=== PATIENT | female | born 1970 | race Caucasian/White ===

== ENCOUNTER → 2017-05-19 | Outpatient (CLI) | payer MEDICARE, MEDICAID, SELFPAY | PROVIDERS: Visit Provider Emergency Medicine | DX: R10.9 Unspecified abdominal pain (principal); Z85.41 Personal history of malignant neoplasm of cervix uteri | CPT/HCPCS: 36415; 74177; 82565; 84520; Q9967 ==

== ENCOUNTER → 2017-06-10 13:08 | Outpatient (CLI) | payer MEDICARE, MEDICAID, SELFPAY ==
--- NOTE | 2017-06-10 13:17 | US_ITS ---
US transvaginal HISTORY: Pelvic mass ITS.REASON: PELVIC MASS ORDERING PHYSICIAN: CHUYITA Pacheco PATIENT AGE: 46 years COMPARISON: CT scan of 05/19/2017 FINDINGS: There has been prior hysterectomy. There is also a history of bilateral oophorectomy. Patient does have a history of cervical cancer. There is a large complex cystic mass in the right adnexa measuring 6.6 x 6.2 cm with a thickened wall and a thickened internal septation measuring up to 1.3 cm in thickness. No obvious pelvic free fluid. No other significant anomalies evident. IMPRESSION: 6.6 cm complex cystic mass in the right adnexa. There is history of hysterectomy and bilateral oophorectomy. This could represent an ovarian remnant with neoplastic involvement. Necrotic destin mass is also a consideration if there has been indeed a complete oophorectomy.
== END ==
PROVIDERS: Family Provider Physician Assistant; PCP Emergency Medicine; Visit Provider Physician Assistant
DX: R19.00 Intra-abdominal and pelvic swelling, mass and lump, unspecified site (principal)
CPT/HCPCS: 76830

== ENCOUNTER → 2017-07-27 15:41 | Outpatient (CLI) | payer MEDICARE, MEDICAID, SELFPAY ==
--- NOTE | 2017-07-27 15:54 | MM_ITS ---
MM Dig screening mamm BI w/CAD CAD Screening COMPARISON: Baseline digital mammograms 06/23/2016 INDICATION: There is no personal or family history of breast cancer TECHNIQUE: Standard CC and MLO images were obtained. R2 CAD reviewed. FINDINGS: Prominent heterogenic fibroglandular densities are seen in the central portions of both breast and the findings are fairly symmetrical bilaterally. There are multiple benign-appearing calcifications in each breast and in addition there is faint arterial calcification in each breast. There is no new or suspicious lesion in either breast and there are no suspicious microcalcifications. IMPRESSION: Moderate diffuse breast density with no suspicious lesion seen BI-RADS Category: 2 Benign Finding(s) RECOMMENDED FOLLOW-UP: 1YR - 1 YEAR FOLLOW-UP (A letter has been sent to the patient regarding results of the study.)
[2017-07-27 17:02] LABS: Basophils # 0.1 K/mm3 (0-0.2); Basophils % 0.7 % (0.1-2.0); Eosinophils # 0.4 K/mm3 (0.0-0.4); Eosinophils % 5.1 % (0.1-12.0); Hematocrit 36.1 % (37.0-47.0); Hemoglobin 10.7 g/dL (12.2-16.2); Lymphocytes # 1.6 K/mm3 (0.7-4.5); Lymphocytes % 22.2 K/mm3 (10-50); Mean Corpuscular HGB Conc 29.7 g/dL (31.8-35.4); Mean Corpuscular Hemoglobin 22.6 pg (27.0-31.2); Mean Platelet Volume 7.8 fl (7.4-10.4); Monocytes # 0.4 K/mm3 (0.1-1.0); Neutrophils # 4.7 K/mm3 (1.8-7.8); Platelet Count 137 K/mm3 (142-424); Red Blood Count 4.75 M/mm3 (4.20-5.40); Red Cell Distribution Width 14.5 % (11.5-17.5); White Blood Count 7.1 K/mm3 (4.8-10.8)
[2017-07-29 13:20] LABS: CA 19-9 1 U/mL (0-35); Cancer Antigen (CA) 125 64.8 U/mL (0.0-38.1)
[2017-07-31 17:25] LABS: Miscellaneous Test SEE SEP REPORT
== END ==
PROVIDERS: Family Provider Physician Assistant; PCP Emergency Medicine; Visit Provider Obstetrics & Gynecology
DX: Z12.31 Encounter for screening mammogram for malignant neoplasm of breast (principal)
CPT/HCPCS: 36415; 77067; 85025; 86316

== ENCOUNTER → 2017-07-27 16:22 | Outpatient (CLI) | payer MEDICARE, MEDICAID, SELFPAY | PROVIDERS: Visit Provider Obstetrics & Gynecology | DX: Z12.31 Encounter for screening mammogram for malignant neoplasm of breast (principal) | CPT/HCPCS: 36415; 77067; 85025; 86316 ==

== ENCOUNTER → 2018-09-10 16:50 | Outpatient (CLI) | payer MEDICARE, MEDICAID, SELFPAY ==
[2018-09-10 17:22] LABS: Basophils % 0.6 % (0.1-2.0); Eosinophils # 0.2 K/mm3 (0.0-0.4); Eosinophils % 2.6 % (0.1-12.0); Hematocrit 34.3 % (37.0-47.0); Hemoglobin 10.4 g/dL (12.2-16.2); Lymphocytes # 2.1 K/mm3 (0.7-4.5); Lymphocytes % 27.1 % (10-50); Mean Corpuscular HGB Conc 30.4 g/dL (31.8-35.4); Mean Corpuscular Hemoglobin 20.7 pg (27.0-31.2); Mean Corpuscular Volume 68.1 fl (81-99); Mean Platelet Volume 8.3 fl (7.4-10.4); Monocytes # 0.4 K/mm3 (0.1-1.0); Neutrophils # 5.1 K/mm3 (1.8-7.8); Neutrophils % 64.7 % (37.0-80.0); Platelet Count 183 K/mm3 (142-424); Red Blood Count 5.04 M/mm3 (4.20-5.40); Red Cell Distribution Width 15.8 % (11.5-17.5); White Blood Count 7.9 K/mm3 (4.8-10.8)
[2018-09-10 17:38] LABS: Alanine Aminotransferase 56 U/L (12-78); Albumin/Globulin Ratio 0.8 (1.1-1.8); Alkaline Phosphatase 103 U/L (46-116); Amylase 80 U/L (25-115); Anion Gap 15.5 mEq/L (5-15); Aspartate Amino Transferase 34 U/L (15-37); Bilirubin,Total 0.4 mg/dL (0.2-1.0); Blood Urea Nitrogen 20 mg/dL (7-18); Calcium 8.9 mg/dL (8.5-10.1); Carbon Dioxide 28 mmol/L (21.0-32.0); Chloride 103 mmol/L (98-107); Creatinine,Serum 1.59 mg/dL (0.55-1.02); Estimated Glomerular Filt Rate 35 ml/min (>60); GFR (African American) 42 ML/MIN (>60); Glucose 148 mg/dL (74-106); Lipase 106 u/L (73-393); Potassium 4.5 mmoL/L (3.5-5.1); Sodium 142 mmol/L (136-145)
== END ==
PROVIDERS: Visit Provider Emergency Medicine
DX: R53.83 Other fatigue (principal)
CPT/HCPCS: 80053; 82150; 83690; 85025

== ENCOUNTER → 2018-11-17 18:40 | Outpatient (CLI) | payer MEDICARE, MEDICAID, SELFPAY ==
[2018-11-17 18:58] LABS: Basophils % 0.4 % (0.1-2.0); Eosinophils # 0.6 K/mm3 (0.0-0.4); Eosinophils % 7.7 % (0.1-12.0); Hematocrit 33.7 % (37.0-47.0); Hemoglobin 9.6 g/dL (12.2-16.2); Lymphocytes # 2.2 K/mm3 (0.7-4.5); Lymphocytes % 27.1 % (10-50); Mean Corpuscular HGB Conc 28.4 g/dL (31.8-35.4); Mean Corpuscular Hemoglobin 19.2 pg (27.0-31.2); Mean Corpuscular Volume 67.6 fl (81-99); Mean Platelet Volume 8.2 fl (7.4-10.4); Monocytes # 0.5 K/mm3 (0.1-1.0); Monocytes % 6.6 % (1.7-9.3); Neutrophils # 4.7 K/mm3 (1.8-7.8); Neutrophils % 58.1 % (37.0-80.0); Platelet Count 251 K/mm3 (142-424); Red Blood Count 4.98 M/mm3 (4.20-5.40); Red Cell Distribution Width 15.1 % (11.5-17.5); White Blood Count 8.1 K/mm3 (4.8-10.8)
[2018-11-17 19:46] LABS: Erythrocyte Sedimentation Rate 27 mm/hr (0-20)
[2018-11-17 20:11] LABS: Alanine Aminotransferase 37 U/L (12-78); Albumin Level 3.5 gm/dL (3.4-5.0); Albumin/Globulin Ratio 0.7 (1.1-1.8); Alkaline Phosphatase 104 U/L (46-116); Anion Gap 17.9 mEq/L (5-15); Aspartate Amino Transferase 30 U/L (15-37); Bilirubin,Total 0.2 mg/dL (0.2-1.0); Blood Urea Nitrogen 27 mg/dL (7-18); Calcium 8.6 mg/dL (8.5-10.1); Carbon Dioxide 23 mmol/L (21.0-32.0); Chloride 104 mmol/L (98-107); Creatinine,Serum 1.46 mg/dL (0.55-1.02); Estimated Glomerular Filt Rate 38 ml/min (>60); GFR (African American) 46 ML/MIN (>60); Globulin 4.8 gm/dl (1.3-3.2); Glucose 89 mg/dL (74-106); Potassium 4.9 mmoL/L (3.5-5.1); Sodium 140 mmol/L (136-145); Total Protein,Serum 8.3 gm/dL (6.4-8.2)
== END ==
PROVIDERS: Visit Provider Emergency Medicine
DX: M54.2 Cervicalgia (principal); R22.1 Localized swelling, mass and lump, neck
CPT/HCPCS: 80053; 85025; 85651

== ENCOUNTER → 2018-11-18 12:19 | Outpatient (CLI) | payer MEDICARE, MEDICAID, SELFPAY ==
--- NOTE | 2018-11-18 12:25 | XR_ITS ---
XR chest 2V HISTORY: ITS.REASON: shortness of breath ORDERING PHYSICIAN: Bijan Bingham MD PATIENT AGE: 48 years COMPARISON: None FINDINGS: The cardiomediastinal silhouette and pulmonary vascularity are within normal limits. There are some scattered ill-defined noncalcified pulmonary nodules in both lungs measuring up to 11 mm in the left perihilar region, 12 mm in the left upper lobe, an 8 mm in the right lower lung zone. These findings are suspicious for metastatic disease in this patient with mass of the tongue.. No acute bony abnormalities. IMPRESSION: Multiple bilateral pulmonary nodules suspicious for metastatic disease.
--- NOTE | 2018-11-18 12:25 | CT_ITS ---
CT soft tissue neck w con CLINICAL INDICATION: ITS.REASON: bilateral neck mass ORDERING PHYSICIAN: Bijan Bingham MD PATIENT AGE: 48 years COMPARISON: None TECHNIQUE: Contrast Used:75ml Optiray 350 Axial images obtained with sagittal and coronal reformats. All CT scans at the facility use one or more dose reduction, viz: automated exposure control, ma/kV adjustment per patient size (including targeted exams where dose is matched to indication, i.e. head), or iterative reconstruction technique. FINDINGS: A BB was placed along the palpable abnormality of the right neck. At this area there is a 3.6 x 2.5 x 2.9 cm mass with decreased density centrally consistent with a necrotic lymph node. Just superior to this is an additional solid mass measuring 3.5 x 2.8 x 2.7 cm beginning posterior to the submandibular gland and extending inferiorly. There are multiple bilateral enhancing nodules within the neck consistent with bilateral cervical adenopathy. These nodules are somewhat ill-defined. There is a 3.6 x 2.7 x 3.3 cm enhancing mass at the base of the tongue centrally and toward the left. The margins are somewhat irregular. This lesion extends into the floor the mouth. Enhancement noted in the left palantine tonsil region. This is consistent with neoplasm at the base of the tongue. Enhancing nodules are present in both right and left neck consistent with adenopathy. Left-sided lymph nodes are present posterior to the submandibular gland and deep to the sternocleidomastoid. The mass at the base of the time extends inferiorly on the left to the level of the hyoid bone and is causing effacement of the left piriform sinus with some enhancement in the left performed sinus region suggesting extension. There was slightly compromised on the left. The mass extends to the base of the epiglottis. Cannot exclude epiglottic involvement. Upper thoracic images show scattered noncalcified pulmonary nodules consistent with metastatic disease. The largest is in the left upper lobe at 8 mm. IMPRESSION: 1. The findings are consistent with neoplasm at the base of the condyle extending into the floor the mouth centrally and on the left extending to the level just at the region of the hyoid with also some enhancement of the left vallecula/piriform sinus 2. There is extensive bilateral cervical adenopathy with the largest node in the right submandibular region as described above. 3. Pulmonary metastases Significant findings called to Dr. Kim on 11/18/2018 1:30 PM.
== END ==
PROVIDERS: PCP Emergency Medicine; Visit Provider Emergency Medicine
DX: R22.1 Localized swelling, mass and lump, neck (principal); R06.02 Shortness of breath; K14.8 Other diseases of tongue; C78.1 Secondary malignant neoplasm of mediastinum; C80.1 Malignant (primary) neoplasm, unspecified; Z72.0 Tobacco use
CPT/HCPCS: 70491; 71046; Q9967

== ENCOUNTER → 2018-12-08 09:26 | Outpatient (CLI) | payer MEDICARE, MEDICAID, SELFPAY ==
--- NOTE | 2018-12-08 09:36 | CT_ITS ---
CT abdomen pelvis wo/w con CLINICAL INDICATION: Neck mass, evaluate for possible metastasis ITS.REASON: mass right neck and left base of tongue ORDERING PHYSICIAN: Shaquille Kim MD PATIENT AGE: 48 years COMPARISON: 05/19/2017 TECHNIQUE: Contrast Used:75ml Optiray 350 Oral Contrast: None Axial images obtained without and with contrast with sagittal and coronal reformats. All CT scans at the facility use one or more dose reduction, viz: automated exposure control, ma/kV adjustment per patient size (including targeted exams where dose is matched to indication, i.e. head), or iterative reconstruction technique. FINDINGS: The liver, adrenal glands, and pancreas have an unremarkable appearance. There is splenomegaly at 15 cm. No radio opaque gallstones are evident. There is mild prominence of the common bile duct and proximal biliary radicles. No renal or ureteral calculi. There is mild prominence of the right renal collecting system. There is a left lower quadrant colostomy. Residual rectosigmoid colon noted. No intestinal obstruction or free air. There is a moderate amount of retained colonic feces proximal to the colostomy. Mild prominence of the small bowel in the mid abdominal region where there is a suture line noted. No free air. No focal inflammatory change. There is a complex mostly cystic pelvic mass at the centered slightly to the right of midline within the pelvis. This contains internal septations and measures 9.4 cm cephalad to caudad, 8.3 cm AP, and 8.9 cm transverse. On the previous exam the patient gives a history of having a hysterectomy. This could represent a complex cystic ovarian mass. The patient does have residual ovarian tissue. This has increased in size from the previous exam previously measuring 5.8 x 5.7 cm. No obvious ascites. No adenopathy. No acute bony findings. IMPRESSION: 1. No evidence of hepatic or adrenal metastasis. 2. Complex cystic pelvic mass situated to the right of midline. There is history of previous hysterectomy. This is suspicious for a cystic ovarian neoplasm. Please correlate with patient's surgical history. Does the patient have residual ovarian tissue? This has increased in size from the previous exam. 3. Prior colon surgery with left lower quadrant colostomy
--- NOTE | 2018-12-08 09:41 | CT_ITS ---
CT chest wo/w con HISTORY: Neck mass with possible metastatic disease of the chest ITS.REASON: mass right neck and left base of tongue ORDERING PHYSICIAN: Shaquille Kim MD PATIENT AGE: 48 years COMPARISON: None Technique: Contrast Used:75ml Optiray 350 Axial images were obtained without and with contrast.. Sagittal, and coronal reformatted images are also generated and reviewed. All CT scans at the facility use one or more dose reduction, viz: automated exposure control, ma/kV adjustment per patient size (including targeted exams where dose is matched to indication, i.e. head), or iterative reconstruction technique. FINDINGS: There are scattered small lymph nodes in the axilla measuring up to 1.8 x 1.3 cm on the left and 1 x 1 cm on the right. A few small lymph nodes are present in the mediastinum. There are coronary artery calcifications. Normal heart size. There are numerous noncalcified pulmonary nodules present in both lungs which measure up to 1.5 x 1 cm on the right in the right middle lobe and 1.3 x 1.1 cm on the left in the left upper lobe medially.. There are centrilobular emphysematous changes with COPD. No effusions. No infiltrates. No bony destructive process. IMPRESSION: 1. Multiple bilateral pulmonary nodules consistent with metastatic disease. 2. COPD/centrilobular emphysema. 3. There are small lymph nodes in the mediastinum and axilla.
== END ==
PROVIDERS: PCP Emergency Medicine; Visit Provider Otolaryngology
DX: R22.1 Localized swelling, mass and lump, neck (principal); K14.8 Other diseases of tongue; C78.1 Secondary malignant neoplasm of mediastinum; C80.1 Malignant (primary) neoplasm, unspecified
CPT/HCPCS: 71270; 74178; Q9967

== ENCOUNTER → 2018-12-09 13:39 | Outpatient (CLI) | payer MEDICARE, MEDICAID, SELFPAY ==
--- NOTE | 2018-12-09 13:42 | US_ITS ---
US FNA Other HISTORY: Right-sided neck mass ORDERING PHYSICIAN: Shaquille Kim MD PATIENT AGE: 48 years COMPARISON: None TECHNIQUE: Following obtaining informed consent, using aseptic technique and local anesthesia with buffered lidocaine, fine-needle aspiration was performed of the nodule of interest using sonographic guidance. 3 passes were made into the nodule with a 21 needle. Specimen was given to cytology. The patient tolerated the procedure well without evidence of immediate complications and left the ultrasound suite in stable condition. CYTOLOGY:Malignant cells consistent with squamous cell carcinoma IMPRESSION: Successful fine-needle aspiration performed of the right neck mass without evidence of immediate complications demonstrating malignant cells consistent with squamous cell carcinoma
== END ==
PROVIDERS: PCP Emergency Medicine; Visit Provider Otolaryngology
DX: C80.1 Malignant (primary) neoplasm, unspecified (principal); C78.1 Secondary malignant neoplasm of mediastinum; R59.1 Generalized enlarged lymph nodes; K14.8 Other diseases of tongue; Z85.41 Personal history of malignant neoplasm of cervix uteri
CPT/HCPCS: 10005; 76942; 88173; 88305

== ENCOUNTER → 2019-01-03 10:13 | Outpatient (CLI) | payer MEDICARE, MEDICAID, SELFPAY ==
--- NOTE | 2019-01-03 10:21 | MR_ITS ---
MR head/brain wo/w con HISTORY: Severe headache, metastatic cancer ITS.REASON: METASTATIC CERVICAL CANCER, HEADACHE ORDERING PHYSICIAN: Anyi Perez MD PATIENT AGE: 48 years Comparison: None TECHNIQUE: Standard multiplanar multiecho sequences are performed without and with gadolinium enhancement. FINDINGS: No midline shift, mass effect, intracranial hemorrhage, or hydrocephalus is evident. No enhancing lesions are apparent. No evidence of acute infarction. The cerebellopontine angles, cerebellum, and brainstem have an unremarkable appearance. There is normal rodriguez-white matter differentiation. There is a single small T2 white matter hyperintensity in the deep white matter of the right parietal lobe which is nonspecific. This does not straight contrast enhancement. The pituitary, optic chiasm, corpus callosum, and craniocervical junction have an unremarkable appearance. No mastoid effusion or sinus air-fluid level. IMPRESSION: Essentially negative MRI the brain without and with contrast. No evidence of metastatic disease.
--- NOTE | 2019-01-03 11:23 | HMH.ITSHM ---
Current Home Medications as stated by this patient Charlotte Montague or communications representative. []OXYCODONE ZOLOFT ZOFRAN VITAMIN D PHENEGRAN
== END ==
PROVIDERS: PCP Emergency Medicine; Visit Provider Internal Medicine Medical Oncology
DX: R51 Headache (principal); C78.1 Secondary malignant neoplasm of mediastinum; C02.9 Malignant neoplasm of tongue, unspecified; C77.0 Secondary and unspecified malignant neoplasm of lymph nodes of head, face and neck
CPT/HCPCS: 70553; A9576

== ENCOUNTER → 2019-01-11 10:21 | Outpatient (CLI) | payer MEDICARE, MEDICAID, SELFPAY ==
[2019-01-11 11:14] LABS: Basophils # 0.1 K/mm3 (0-0.2); Basophils % 0.6 % (0.1-2.0); Eosinophils # 1.5 K/mm3 (0.0-0.4); Eosinophils % 13.7 % (0.1-12.0); Hematocrit 30.4 % (37.0-47.0); Hemoglobin 9.1 g/dL (12.2-16.2); Lymphocytes # 1.9 K/mm3 (0.7-4.5); Lymphocytes % 17.5 % (10-50); Mean Corpuscular HGB Conc 29.7 g/dL (31.8-35.4); Mean Corpuscular Hemoglobin 20.3 pg (27.0-31.2); Mean Corpuscular Volume 68.4 fl (81-99); Mean Platelet Volume 6.7 fl (7.4-10.4); Monocytes # 0.5 K/mm3 (0.1-1.0); Monocytes % 4.2 % (1.7-9.3); Platelet Count 225 K/mm3 (142-424); Red Blood Count 4.45 M/mm3 (4.20-5.40); Red Cell Distribution Width 15.3 % (11.5-17.5); White Blood Count 10.9 K/mm3 (4.8-10.8)
[2019-01-11 13:59] LABS: Anion Gap 14.7 mEq/L (5-15); Blood Urea Nitrogen 17 mg/dL (7-18); Calcium 8.8 mg/dL (8.5-10.1); Carbon Dioxide 27 mmol/L (21.0-32.0); Chloride 102 mmol/L (98-107); Creatinine,Serum 1.33 mg/dL (0.55-1.02); Estimated Glomerular Filt Rate 43 ml/min (>60); GFR (African American) 52 ML/MIN (>60); Glucose 139 mg/dL (74-106); Potassium 3.7 mmoL/L (3.5-5.1); Sodium 140 mmol/L (136-145)
== END ==
PROVIDERS: Visit Provider Surgery
DX: C78.1 Secondary malignant neoplasm of mediastinum (principal); Z72.0 Tobacco use
CPT/HCPCS: 36415; 80048; 85025

== ENCOUNTER 2019-01-14 09:01 | Outpatient (CLI) | payer MEDICARE, MEDICAID, SELFPAY ==
[2019-01-14 10:00] VITALS: BP 108/65; PULSE 68; RESP 20; TEMP 36.9; O2SAT 95
[2019-01-14 10:40] VITALS: BP 108/74; PULSE 80; RESP 20; TEMP 36.9; O2SAT 95
[2019-01-14 11:30] VITALS: BP 109/66; PULSE 80; RESP 20; TEMP 36.9; O2SAT 98
--- NOTE | 2019-01-14 11:30 | PC.NURSE ---
PT WAS HERE TODAY FOR FIRST CHEMO TREATMENT AND TO GET HOOKED UP TO CONTINUOUS PUMP FOR HOME CHEMOTHERAPY. THE 5FU WAS SHIPPED AND SENT TO THE PATIENT FOR US TO BLOCK HAND. THE PATIENT BROUGHT THE PUMP AND MEDICATION WITH THEM TO INFUSION; AFTER THE PATIENT WAS GIVEN THE TWO MEDICATIONS HERE AND THEN WAS HOOKED UP TO THE PUMP AND SENT HOME WITH INSTRUCTION AND DISCHARGE INFORMATION. HOME HEALTH WILL BE MONITORING THE PATIENT AND WILL GO TO PATIENTS HOME ON THURSDAY THE AND UNHOOK THE PATIENT. NO OTHER ISSUES TO REPORT AT THIS TIME.
== END 2019-01-14 11:30 | disposition home or self-care (01) ==
LOC: INF 09:01
PROVIDERS: Visit Provider Internal Medicine Medical Oncology
DX: C78.1 Secondary malignant neoplasm of mediastinum (principal); Z72.0 Tobacco use; C76.0 Malignant neoplasm of head, face and neck; C78.02 Secondary malignant neoplasm of left lung; C78.01 Secondary malignant neoplasm of right lung; C79.89 Secondary malignant neoplasm of other specified sites; Z51.11 Encounter for antineoplastic chemotherapy
CPT/HCPCS: 96413; 96417; G0463; J8501; J9045; J9271; Q0166

== ENCOUNTER 2019-02-10 11:39 | Outpatient (CLI) | payer MEDICARE, MEDICAID, SELFPAY ==
[2019-02-10 11:42] VITALS: BMI 17.2
[2019-02-10 12:00] VITALS: BP 112/69; PULSE 78; RESP 18; TEMP 36.6; O2SAT 96
[2019-02-10 12:08] LABS: Basophils % 0.4 % (0.1-2.0); Eosinophils # 0.2 K/mm3 (0.0-0.4); Eosinophils % 5.3 % (0.1-12.0); Lymphocytes # 1.3 K/mm3 (0.7-4.5); Lymphocytes % 27.5 % (10-50); Mean Corpuscular HGB Conc 29.6 g/dL (31.8-35.4); Mean Corpuscular Hemoglobin 20.6 pg (27.0-31.2); Mean Corpuscular Volume 69.4 fl (81-99); Mean Platelet Volume 8.5 fl (7.4-10.4); Monocytes # 0.2 K/mm3 (0.1-1.0); Monocytes % 3.9 % (1.7-9.3); Neutrophils # 2.9 K/mm3 (1.8-7.8); Neutrophils % 62.9 % (37.0-80.0); Platelet Count 289 K/mm3 (142-424); Red Cell Distribution Width 19.7 % (11.5-17.5); White Blood Count 4.6 K/mm3 (4.8-10.8)
[2019-02-10 12:18] LABS: Hemoglobin 6.4 g/dL (12.2-16.2)
[2019-02-10 12:19] LABS: Alanine Aminotransferase 17 U/L (12-78); Albumin Level 2.3 gm/dL (3.4-5.0); Albumin/Globulin Ratio 0.4 (1.1-1.8); Alkaline Phosphatase 78 U/L (46-116); Aspartate Amino Transferase 19 U/L (15-37); Bilirubin,Total 0.2 mg/dL (0.2-1.0); Blood Urea Nitrogen 20 mg/dL (7-18); Carbon Dioxide 17 mmol/L (21.0-32.0); Chloride 105 mmol/L (98-107); Creatinine Clearance Estimated 39 mL/min (50-200); Creatinine,Serum 1.27 mg/dL (0.55-1.02); Estimated Glomerular Filt Rate 45 ml/min (>60); GFR (African American) 54 ML/MIN (>60); Globulin 5.3 gm/dl (1.3-3.2); Glucose 82 mg/dL (74-106); Hematocrit 21.5 % (37.0-47.0); Sodium 138 mmol/L (136-145); Total Protein,Serum 7.6 gm/dL (6.4-8.2)
[2019-02-10 15:19] LABS: Ferritin 1234 ng/mL (8-388)
[2019-02-11 11:02] LABS: Calcium 6.7 mg/dL (8.5-10.1)
[2019-02-12 07:32] LABS: Iron 39 ug/dL (27-159); UIBC 112 ug/dL (131-425)
[2019-02-13 04:18] LABS: Iron Saturation 26 % (15-55)
== END 2019-02-10 13:45 | disposition home or self-care (01) ==
LOC: INF 11:39
PROVIDERS: Visit Provider Internal Medicine Medical Oncology
DX: Z51.11 Encounter for antineoplastic chemotherapy (principal); C76.0 Malignant neoplasm of head, face and neck
CPT/HCPCS: 80053; 82728; 83540; 83550; 85025; 86850; J1642

== ENCOUNTER → 2019-02-11 10:26 | Outpatient (CLI) | payer MEDICARE, MEDICAID, SELFPAY ==
[2019-02-11] VITALS (20 sets, daily range): BP systolic 97–136; BP diastolic 62–79; PULSE 68–97; RESP 16–20; TEMP 36.4–37.1; O2SAT 95–98; BMI 16.6
[2019-02-11 16:16] LABS: Hematocrit 27.7 % (37.0-47.0); Hemoglobin 8.6 g/dL (12.2-16.2)
== END ==
PROVIDERS: Visit Provider Internal Medicine Medical Oncology
DX: D64.9 Anemia, unspecified (principal); C76.0 Malignant neoplasm of head, face and neck; C78.1 Secondary malignant neoplasm of mediastinum; C78.02 Secondary malignant neoplasm of left lung; C78.01 Secondary malignant neoplasm of right lung; C79.89 Secondary malignant neoplasm of other specified sites; Z72.0 Tobacco use
CPT/HCPCS: 36430; 85014; 85018; J1642; P9016

== ENCOUNTER 2019-02-15 12:05 | Outpatient (CLI) | payer MEDICARE, MEDICAID, SELFPAY ==
[2019-02-15 12:47] VITALS: BP 135/67; PULSE 84; RESP 20; TEMP 36.8; O2SAT 97
[2019-02-15 13:17] VITALS: BP 142/70; PULSE 88; RESP 20; O2SAT 98
[2019-02-15 13:47] VITALS: BP 150/80; PULSE 86; RESP 20; O2SAT 97
[2019-02-15 14:17] VITALS: BP 138/74; PULSE 84; RESP 20; O2SAT 97
[2019-02-15 14:40] VITALS: BP 123/62; PULSE 91; RESP 20; O2SAT 97
== END 2019-02-15 14:40 | disposition home or self-care (01) ==
LOC: INF 12:05
PROVIDERS: PCP Emergency Medicine; Visit Provider Internal Medicine Medical Oncology
DX: Z51.11 Encounter for antineoplastic chemotherapy (principal); C76.0 Malignant neoplasm of head, face and neck; C78.1 Secondary malignant neoplasm of mediastinum; C78.02 Secondary malignant neoplasm of left lung; C78.01 Secondary malignant neoplasm of right lung; C79.89 Secondary malignant neoplasm of other specified sites; Z72.0 Tobacco use
CPT/HCPCS: 96413; 96417; J1642; J8501; J9045; J9271; Q0166

== ENCOUNTER 2019-03-03 11:09 | Outpatient (CLI) | payer MEDICARE, MEDICAID, SELFPAY ==
[2019-03-03 11:15] VITALS: BMI 17.5
[2019-03-03 11:20] VITALS: BP 116/69; PULSE 78; RESP 18; TEMP 36.6; O2SAT 97
[2019-03-03 11:42] LABS: Basophils % 0.4 % (0.1-2.0); Eosinophils # 0.3 K/mm3 (0.0-0.4); Eosinophils % 5.1 % (0.1-12.0); Hematocrit 25.9 % (37.0-47.0); Lymphocytes # 1.7 K/mm3 (0.7-4.5); Lymphocytes % 28.9 % (10-50); Mean Corpuscular Hemoglobin 23.8 pg (27.0-31.2); Mean Corpuscular Volume 76.8 fl (81-99); Mean Platelet Volume 7.8 fl (7.4-10.4); Monocytes # 0.3 K/mm3 (0.1-1.0); Monocytes % 4.8 % (1.7-9.3); Neutrophils # 3.5 K/mm3 (1.8-7.8); Neutrophils % 60.8 % (37.0-80.0); Platelet Count 196 K/mm3 (142-424); Red Blood Count 3.38 M/mm3 (4.20-5.40); Red Cell Distribution Width 20.6 % (11.5-17.5); White Blood Count 5.8 K/mm3 (4.8-10.8)
[2019-03-03 12:23] LABS: Alanine Aminotransferase 8 U/L (12-78); Albumin Level 2.3 gm/dL (3.4-5.0); Albumin/Globulin Ratio 0.5 (1.1-1.8); Alkaline Phosphatase 74 U/L (46-116); Anion Gap 19.6 mEq/L (5-15); Aspartate Amino Transferase 13 U/L (15-37); Bilirubin,Total 0.2 mg/dL (0.2-1.0); Blood Urea Nitrogen 25 mg/dL (7-18); Carbon Dioxide 18 mmol/L (21.0-32.0); Chloride 107 mmol/L (98-107); Creatinine Clearance Estimated 40 mL/min (50-200); Creatinine,Serum 1.26 mg/dL (0.55-1.02); Estimated Glomerular Filt Rate 45 ml/min (>60); GFR (African American) 55 ML/MIN (>60); Glucose 78 mg/dL (74-106); Sodium 142 mmol/L (136-145); Total Protein,Serum 7.3 gm/dL (6.4-8.2)
[2019-03-03 12:27] LABS: Potassium 2.6 mmoL/L (3.5-5.1)
== END 2019-03-03 12:25 | disposition home or self-care (01) ==
LOC: INF 11:09
PROVIDERS: PCP Emergency Medicine; Visit Provider Internal Medicine Medical Oncology
DX: C76.0 Malignant neoplasm of head, face and neck (principal); Z45.2 Encounter for adjustment and management of vascular access device
CPT/HCPCS: 80053; 85025; J1642

== ENCOUNTER 2019-03-11 12:32 | Outpatient (CLI) | payer MEDICARE, MEDICAID, SELFPAY ==
[2019-03-11 12:34] VITALS: BMI 15.4
[2019-03-11 13:42] LABS: Alanine Aminotransferase 12 U/L (12-78); Albumin Level 2.6 gm/dL (3.4-5.0); Albumin/Globulin Ratio 0.5 (1.1-1.8); Alkaline Phosphatase 86 U/L (46-116); Anion Gap 15.6 mEq/L (5-15); Aspartate Amino Transferase 15 U/L (15-37); Bilirubin,Total 0.4 mg/dL (0.2-1.0); Blood Urea Nitrogen 21 mg/dL (7-18); Calcium 7.4 mg/dL (8.5-10.1); Carbon Dioxide 22 mmol/L (21.0-32.0); Chloride 106 mmol/L (98-107); Creatinine Clearance Estimated 35 mL/min (50-200); Creatinine,Serum 1.25 mg/dL (0.55-1.02); Estimated Glomerular Filt Rate 46 ml/min (>60); GFR (African American) 55 ML/MIN (>60); Globulin 5.4 gm/dl (1.3-3.2); Glucose 105 mg/dL (74-106); Potassium 3.6 mmoL/L (3.5-5.1); Sodium 140 mmol/L (136-145)
[2019-03-11 13:44] LABS: Thyroid Stimulating Hormone 4.78 uIU/ml (0.358-3.740)
[2019-03-11 14:17] VITALS: BP 127/78; PULSE 93; RESP 20; TEMP 36.5; O2SAT 98
[2019-03-11 14:47] VITALS: BP 124/69; PULSE 90; RESP 20; O2SAT 97
[2019-03-11 15:17] VITALS: BP 126/64; PULSE 91; RESP 20; O2SAT 97
[2019-03-11 15:50] VITALS: BP 133/69; PULSE 89; RESP 20; O2SAT 98
== END 2019-03-11 15:50 | disposition home or self-care (01) ==
LOC: INF 12:32
PROVIDERS: Visit Provider Internal Medicine Medical Oncology
DX: Z51.11 Encounter for antineoplastic chemotherapy (principal); C76.0 Malignant neoplasm of head, face and neck; Z79.899 Other long term (current) drug therapy
CPT/HCPCS: 80053; 82533; 84443; 96413; 96417; J1642; J8501; J9045; J9271; Q0166

== ENCOUNTER 2019-04-13 10:55 | Outpatient (CLI) | payer MEDICARE, MEDICAID, SELFPAY ==
[2019-04-13] VITALS (10 sets, daily range): BP systolic 122–139; BP diastolic 66–78; PULSE 83–87; RESP 18; TEMP 36.6–37.1; O2SAT 97–100; BMI 15.4
[2019-04-13 11:28] LABS: Basophils % 0.3 % (0.1-2.0); Eosinophils # 0.4 K/mm3 (0.0-0.4); Eosinophils % 3.7 % (0.1-12.0); Lymphocytes # 1.4 K/mm3 (0.7-4.5); Lymphocytes % 13.8 % (10-50); Mean Corpuscular HGB Conc 27.7 g/dL (31.8-35.4); Mean Corpuscular Hemoglobin 23.4 pg (27.0-31.2); Mean Corpuscular Volume 84.6 fl (81-99); Mean Platelet Volume 8.5 fl (7.4-10.4); Monocytes # 0.5 K/mm3 (0.1-1.0); Monocytes % 4.6 % (1.7-9.3); Neutrophils # 7.7 K/mm3 (1.8-7.8); Neutrophils % 77.6 % (37.0-80.0); Platelet Count 397 K/mm3 (142-424); Red Blood Count 2.54 M/mm3 (4.20-5.40); Red Cell Distribution Width 23.8 % (11.5-17.5); White Blood Count 9.9 K/mm3 (4.8-10.8)
[2019-04-13 11:40] LABS: Alanine Aminotransferase 66 U/L (12-78); Albumin Level 2.8 gm/dL (3.4-5.0); Albumin/Globulin Ratio 0.6 (1.1-1.8); Alkaline Phosphatase 89 U/L (46-116); Anion Gap 13.3 mEq/L (5-15); Aspartate Amino Transferase 40 U/L (15-37); Bilirubin,Total 0.9 mg/dL (0.2-1.0); Blood Urea Nitrogen 30 mg/dL (7-18); Calcium 8.7 mg/dL (8.5-10.1); Carbon Dioxide 28 mmol/L (21.0-32.0); Chloride 98 mmol/L (98-107); Creatinine Clearance Estimated 28 mL/min (50-200); Creatinine,Serum 1.57 mg/dL (0.55-1.02); Estimated Glomerular Filt Rate 35 ml/min (>60); GFR (African American) 43 ML/MIN (>60); Sodium 137 mmol/L (136-145); Total Protein,Serum 7.8 gm/dL (6.4-8.2)
[2019-04-13 11:43] LABS: Hematocrit 21.5 % (37.0-47.0); Hemoglobin 5.9 g/dL (12.2-16.2)
[2019-04-13 11:46] LABS: Potassium 2.3 mmoL/L (3.5-5.1)
[2019-04-13 12:03] LABS: Glucose 88 mg/dL (74-106)
--- NOTE | 2019-04-13 13:37 | PC.NURSE ---
1337-verified unit 1 [id number] with lorne patel rn.
--- NOTE | 2019-04-13 15:22 | PC.NURSE ---
1522-1st unit of prbc's started and ended at 152.
--- NOTE | 2019-04-13 15:35 | PC.NURSE ---
1535-pt discharged did not need 1 hour post per md order to draw 1 hour post tomorrow after 2nd unit.
== END 2019-04-13 15:35 | disposition home or self-care (01) ==
LOC: INF 11:02
PROVIDERS: Visit Provider Internal Medicine Medical Oncology
DX: C76.0 Malignant neoplasm of head, face and neck (principal)
CPT/HCPCS: 36430; 80053; 85025; 86850; J1642; P9016

== ENCOUNTER 2019-04-14 10:26 | Outpatient (CLI) | payer MEDICARE, MEDICAID, SELFPAY ==
[2019-04-14] VITALS (11 sets, daily range): BP systolic 101–139; BP diastolic 34–78; PULSE 76–88; RESP 18; TEMP 36.8–37.1; O2SAT 97–100; BMI 15.4
[2019-04-14 14:01] LABS: Hematocrit 30.2 % (37.0-47.0); Hemoglobin 9.2 g/dL (12.2-16.2)
== END 2019-04-14 13:45 | disposition home or self-care (01) ==
LOC: INF 10:26
PROVIDERS: Visit Provider Internal Medicine Medical Oncology
DX: D64.9 Anemia, unspecified (principal)
CPT/HCPCS: 36430; 85014; 85018; J1642; P9016

== ENCOUNTER 2019-04-20 10:42 | Outpatient (CLI) | payer MEDICARE, MEDICAID, SELFPAY ==
[2019-04-20 10:44] VITALS: BMI 13.8
[2019-04-20 11:03] LABS: Basophils # 0.1 K/mm3 (0-0.2); Basophils % 0.8 % (0.1-2.0); Eosinophils # 0.5 K/mm3 (0.0-0.4); Eosinophils % 5.9 % (0.1-12.0); Hematocrit 31.6 % (37.0-47.0); Hemoglobin 9.6 g/dL (12.2-16.2); Lymphocytes # 0.9 K/mm3 (0.7-4.5); Mean Corpuscular HGB Conc 30.4 g/dL (31.8-35.4); Mean Corpuscular Hemoglobin 26.2 pg (27.0-31.2); Mean Corpuscular Volume 86.1 fl (81-99); Monocytes # 0.4 K/mm3 (0.1-1.0); Monocytes % 5.2 % (1.7-9.3); Neutrophils % 77.1 % (37.0-80.0); Platelet Count 187 K/mm3 (142-424); Red Blood Count 3.67 M/mm3 (4.20-5.40); Red Cell Distribution Width 18.3 % (11.5-17.5); White Blood Count 7.8 K/mm3 (4.8-10.8)
[2019-04-20 12:02] VITALS: BP 122/72; PULSE 83; RESP 18
[2019-04-20 12:17] VITALS: BP 150/77; PULSE 86; RESP 18
[2019-04-20 12:32] VITALS: BP 146/76; PULSE 90; RESP 18
[2019-04-20 12:40] VITALS: BP 148/77; PULSE 87; RESP 18
[2019-04-20 12:55] VITALS: BP 132/83; PULSE 81; RESP 18
[2019-04-20 13:20] VITALS: BP 130/75; PULSE 83; RESP 18
== END 2019-04-20 13:20 | disposition home or self-care (01) ==
LOC: INF 10:42
PROVIDERS: Visit Provider Internal Medicine Medical Oncology
DX: Z51.11 Encounter for antineoplastic chemotherapy (principal); C76.0 Malignant neoplasm of head, face and neck
CPT/HCPCS: 85025; 96413; 96417; J1642; J8501; J9045; J9271; Q0166

== ENCOUNTER 2019-05-03 08:47 | Outpatient (CLI) | payer MEDICARE, MEDICAID, SELFPAY ==
--- NOTE | 2019-05-03 08:59 | CT_ITS ---
PROCEDURE: CT ABDOMEN PELVIS WO/W CON CLINICAL INDICATION: COLON CANCER , NEOPLASM OF HEAD AND MEDIATINUM COMPARISON: [id number] CT abdomen pelvis wo/w con from 12/08/2018 TECHNIQUE: IV Contrast: 75ML OPTIRAY 350 Oral Contrast 450ml Redicat Axial images obtained with sagittal and coronal reformats. All CT scans at the facility use one or more dose reduction, viz: automated exposure control, ma/kV adjustment per patient size (including targeted exams where dose is matched to indication, i.e. head), or iterative reconstruction technique. FINDINGS: Multiple pulmonary metastasis are noted in the lung bases. Pre and post enhanced images are obtained. No focal liver lesion. The spleen, adrenal glands, and pancreas have an unremarkable appearance. No renal or ureteral calculi. There is mild prominence of the biliary tree The the there is a left lower quadrant colostomy. There is mild diffuse distention of the small bowel loops with air-fluid levels. The colon is nondistended. On these may be due to small bowel obstruction. The transition point is not readily apparent. Exam is limited secondary to patient's severe lack of body fat. There is a large complex pelvic mass centrally and on the right with some internal septations. The mass measures 9 by 7 cm slightly smaller previously measuring 9.5 x 8.3 cm. There is thickening of the presacral soft tissues which has progressed compared to the previous exam. Multiple unopacified bowel loops in the abdomen or pelvis which could obscure or mimic pathology. If symptoms persist, consider repeat exam with IV and oral contrast.. IMPRESSION: 1. Complex cystic pelvic mass once again noted and appears slightly smaller. There is increased soft tissue thickening in the presacral region. 2. There are dilated loops of small bowel with air-fluid levels suggesting small bowel obstruction. A transition point is not identified. Ileus is also consideration. The large bowel decompressed. There is a left lower quadrant colostomy. Dictated by: Andrzej Gibbs MD 05/05/2019 06:37 Electronically signed by Andrzej Gibbs MD in [place] 05/05/2019 06:37
--- NOTE | 2019-05-03 08:59 | CT_ITS ---
PROCEDURE: CT SOFT TISSUE NECK WO/W CON CLINICAL HISTORY: COLON CANCER , NEOPLASM OF HEAD AND MEDIATINUM 0 COMPARISON: NECKW CT soft tissue neck w con from 11/18/2018 FNAOTHER US FNA Other from 12/09/2018 TECHNIQUE: IV contrast: 75 mL Optiray 350. Axial images obtained with sagittal and coronal reformats. All CT scans at the facility use one or more dose reduction, viz: automated exposure control, ma/kV adjustment per patient size (including targeted exams where dose is matched to indication, i.e. head), or iterative reconstruction technique. FINDINGS: There is extensive heterogeneous enhancement the throughout the neck at the base of the tongue, left parapharyngeal region, right lateral neck, in the mid aspect of the tongue on the left,. Previously noted necrotic right neck mass measures 4.6 by 3.8 cm previously measuring 3.4 by 2.7 cm. Irregular areas of enhancement are present in the deep cervical chain on the left and in the submandibular region bilaterally consistent with metastatic deposits. The previously noted mass at the base of the tongue is somewhat less apparent. There is however increasing heterogeneous enhancement along the left aspect of the parapharyngeal region. No acute bony anomalies. IMPRESSION: There is extensive irregular enhancement within the neck on both sides which has progressed in the parapharyngeal region on the left, the central and left aspect of the tongue with bilateral cervical adenopathy and a large mass in the right anterior neck which has enlarged consistent with extensive metastatic disease of the neck which has progressed. The lesion at the base of the tongue is somewhat smaller. Has the patient had an interval biopsy of this lesion? Dictated by: Andrzej Gibbs MD 05/04/2019 13:56 Electronically signed by Andrzej Gibbs MD in [facility] 05/05/2019 06:14
--- NOTE | 2019-05-03 08:59 | CT_ITS ---
PROCEDURE: CT CHEST WO/W CON CLINCAL INDICATION: COLON CANCER , NEOPLASM OF HEAD AND MEDIATINUM COMPARISON: CHESTWW CT chest wo/w con from 12/08/2018 CT SOFT TISSUE NECK WO/W CON from 05/03/2019 TECHNIQUE: IV Contrast: 75ml Optiray 350 Axial images obtained with sagittal and coronal reformats. All CT scans at the facility use one or more dose reduction, viz: automated exposure control, ma/kV adjustment per patient size (including targeted exams where dose is matched to indication, i.e. head), or iterative reconstruction technique. FINDINGS: No mediastinal or hilar mass or adenopathy. Coronary artery calcifications are present. There are numerous bilateral pulmonary nodules which are noncalcified. These are in both upper and lower lobes of both lungs. Largest nodule on the right is in the lower lobes centrally at 2 cm. Previously this nodule was 9 mm. The largest nodule on the left is in the lingula at 2.7 cm previously 1.7 cm. No effusions. No infiltrates. No central obstructing lesion. No acute bony anomalies. There is a MediPort catheter from left subclavian approach with tip in the region of the superior vena cava. IMPRESSION: Numerous bilateral pulmonary nodules consistent with metastatic disease which has progressed compared to the previous exam Dictated by: Andrzej Gibbs MD 05/04/2019 13:56 Electronically signed by Andrzej Gibbs MD in [facility] 05/05/2019 06:24
[2019-05-03 11:16] VITALS: BMI 15.3
[2019-05-03 11:26] LABS: Basophils % 0.8 % (0.1-2.0); Eosinophils # 0.1 K/mm3 (0.0-0.4); Eosinophils % 2.1 % (0.1-12.0); Hematocrit 25.2 % (37.0-47.0); Lymphocytes # 1.2 K/mm3 (0.7-4.5); Lymphocytes % 28.9 % (10-50); Mean Corpuscular HGB Conc 30.3 g/dL (31.8-35.4); Mean Corpuscular Hemoglobin 24.6 pg (27.0-31.2); Mean Corpuscular Volume 81.1 fl (81-99); Mean Platelet Volume 7.8 fl (7.4-10.4); Monocytes # 0.2 K/mm3 (0.1-1.0); Monocytes % 4.3 % (1.7-9.3); Neutrophils # 2.6 K/mm3 (1.8-7.8); Platelet Count 75 K/mm3 (142-424); Red Blood Count 3.11 M/mm3 (4.20-5.40); Red Cell Distribution Width 17.8 % (11.5-17.5); White Blood Count 4.1 K/mm3 (4.8-10.8)
[2019-05-03 11:32] LABS: Hemoglobin 7.6 g/dL (12.2-16.2)
[2019-05-03 11:37] LABS: Alanine Aminotransferase 21 U/L (12-78); Albumin Level 2.1 gm/dL (3.4-5.0); Albumin/Globulin Ratio 0.5 (1.1-1.8); Alkaline Phosphatase 97 U/L (46-116); Aspartate Amino Transferase 30 U/L (15-37); Bilirubin,Total 0.4 mg/dL (0.2-1.0); Blood Urea Nitrogen 18 mg/dL (7-18); Carbon Dioxide 24 mmol/L (21.0-32.0); Chloride 103 mmol/L (98-107); Creatinine Clearance Estimated 31 mL/min (50-200); Creatinine,Serum 1.27 mg/dL (0.55-1.02); Estimated Glomerular Filt Rate 45 ml/min (>60); GFR (African American) 54 ML/MIN (>60); Globulin 4.5 gm/dl (1.3-3.2); Glucose 71 mg/dL (74-106); Sodium 139 mmol/L (136-145); Total Protein,Serum 6.6 gm/dL (6.4-8.2)
== END 2019-05-03 12:18 | disposition home or self-care (01) ==
LOC: RAD 08:47 → INF 11:07
PROVIDERS: PCP Emergency Medicine; Visit Provider Internal Medicine Medical Oncology
DX: C76.0 Malignant neoplasm of head, face and neck (principal); Z03.89 Encounter for observation for other suspected diseases and conditions ruled out
CPT/HCPCS: 70492; 71270; 74178; 80053; 85025; J1642; Q9967